=== PATIENT | female | born 1980 | race Caucasian/White ===

== ENCOUNTER 2020-06-25 13:37 | Emergency (ER) | payer OTHER ==
[2020-06-25] MEDS ORDERED: NORCO 5-325 TA1 EACH PO (14:57)
== END 2020-06-25 15:20 | disposition home or self-care (01) ==
LOC: FER 13:37
DX: S22.42XA Multiple fractures of ribs, left side, initial encounter for closed fracture (principal); F17.210 Nicotine dependence, cigarettes, uncomplicated; Z88.0 Allergy status to penicillin; W01.0XXA Fall on same level from slipping, tripping and stumbling without subsequent striking against object, initial encounter; Y92.009 Unspecified place in unspecified non-institutional (private) residence as the place of occurrence of the external cause
CPT/HCPCS: 71101; 94010; 96372; J1100; J1885